=== PATIENT | female | born 1980 | race Caucasian/White ===

== ENCOUNTER → 2023-08-02 11:14 | Outpatient (REF) | payer BC, SELFPAY | LOC: HWWDC 11:14 | PROVIDERS: ATTENDING PHYSICIAN Nurse Practitioner | DX: Z12.31 Encounter for screening mammogram for malignant neoplasm of breast (principal) | CPT/HCPCS: 77063; 77067 ==

== ENCOUNTER 2024-09-11 21:00 | Emergency (ER) | payer BC, SELFPAY ==
[2024-09-11 21:01] VITALS: BP 147/95
[2024-09-11 21:23] VITALS: BMI 41.2
[2024-09-11 21:24] LABS: % Basophils 0.3 % (0-2); % Eosinophils 1.6 % (0-6); % Immature Granulocytes 0.3 % (0-0.5); % Monocytes 7.1 % (1.7-9.3); % Neutrophils 70.7 % (42.2-75.2); Absolute Eosinophils 0.1 10^3/uL (0-0.7); Absolute Lymphocytes 1.5 10^3/uL (1.2-3.4); Absolute Monocytes 0.5 10^3/uL (0.1-0.6); Absolute Neutrophils 5.3 10^3/uL (1.4-6.5); Hemoglobin 14.4 g/dL (12.0-16.0); Mean Corp Hgb Conc. 34.3 g/dL (33.0-37.0); Mean Corpuscular Volume 81.6 fL (81.0-99.0); Mean Platelet Volume 9.5 fL (7.4-10.4); Nucleated Red Blood Cells % 0 %; Platelet Count 328 10^3/uL (130-400); Red Blood Cell Count 5.15 10^6/uL (4.20-5.40); Red Cell Dist. Width 13.5 % (11.5-14.5); White Blood Cell Count 7.5 10^3/uL (4.8-10.8)
[2024-09-11 21:34] VITALS: BMI 41.7
[2024-09-11 21:36] LABS: HCG, Serum Qualitative Screen Negative
[2024-09-11 21:41] LABS: ALT (SGPT) 42 U/L (0-35); AST (SGOT) 27 U/L (14-36); Albumin 4.2 g/dl (3.5-5.0); Alkaline Phosphatase 72 U/L (38-126); Blood Urea Nitrogen 15 mg/dl (7-17); Calcium 9.2 mg/dl (8.4-10.2); Carbon Dioxide 27 mmol/L (22-30); Chloride 99 mmol/L (98-107); Estimated Creatinine Clearance 87 ml/min; Glucose 104 mg/dl (70-99); Lipase 65 U/L (23-300); Potassium 3.9 mmol/L (3.5-5.1); Sodium 136 mmol/L (135-145); Total Bilirubin 0.7 mg/dl (0.2-1.3); Total Protein 6.8 g/dl (6.3-8.2); eGFR > 60.00
[2024-09-11] MEDS: BENADRYL 25 MG IV (22:15)
[2024-09-11] MEDS: COMPAZINE 10 MG IV (22:15)
--- NOTE | 2024-09-11 22:46 | ED.GENMED ---
History of Present Illness
General
Chief Complaint: Abdominal Symptoms
Source: patient
Exam Limitations: none
Time Seen by Provider: 09/11/24 22:05
Nursing documentation reviewed up to this point in time: agreed with
History of Present Illness
History of Present Illness:
Patient started on Wegovy 3 months ago for weight loss, presents to ED secondary to persistent abdominal pain associated with nausea and vomiting over the past 5 days. Denies fever or chills. Denies diarrhea. Patient does have history of
constipation, and has taken Dulcolax and has had bowel movements, which did not improve her symptoms. Abdominal pain described as crampy, diffuse, without any alleviating or exacerbating factors. Patient has not been able to eat anything since
onset of her symptoms. Patient has lost approximately 20 pounds of weight since starting medication. Wegovy dose has been increased incrementally, including last week.
Past History
Past History
ED Past Medical History: Other (Polycystic ovary)
ED Past Surgical History: Cardiac (Ablation for Brown Parkinson White) and
Social History
Tobacco: Non-smoker
Personal:
Living: with family
Review of Systems
Review of Systems
Allergies reviewed?: Yes
All Other Systems: ROS reviewed and negative except as documented in HPI and ROS
Constitutional: Reports no symptoms; Denies fever
Respiratory: Reports no symptoms; Denies cough
Cardiac: Reports no symptoms; Denies chest pain
ABD/GI: Reports abdominal pain, nausea, vomiting and constipated; Denies diarrhea
Musculoskeletal: Reports no symptoms
Skin: Reports no symptoms
Neurological: Reports no symptoms
Phy Exam
Physical Exam
Physical Exam:
Physical Exam
General: mild distress, not acutely ill. afebrile
Head: nc/at. eomi
Neck: supple. normal range of motion.
Heart: s1/s2 regular rate and rhythm
Lungs: no acute respiratory distress. clear bilaterally
Abdomen: normal bowel sounds. not tender. no distention
Neuro: alert and oriented x 3. no focal neurological deficits
Skin: no rash
Psychiatric: well kept. interactive and cooperative
Extremities: no edema. no calf tenderness.
Course
Orders/Labs/Results
Orders:
Orders
09/11/24 21:13
Complete Blood Count/With Diff Urgent
Comprehensive Metabolic Panel Urgent
HCG, Serum Qualitative Screen Urgent
Lipase Urgent
09/11/24 21:51
ECG [Electrocardiogram (*1)] Urgent
Reason for Study: Abdominal Pain
Cardiology Consult: Unknown
09/11/24 21:52
EKG- Treatment ONCE
09/11/24 21:59
Prochlorperazine [Compazine] 10 mg IV NOW STA
09/11/24 22:00
Diphenhydramine [Benadryl] 25 mg IV NOW STA
09/11/24 22:35
0.9% Sodium Chloride 1000 ml [Nss] 1,000 ml IV BOLUS
Ketorolac [Toradol] 15 mg IV NOW STA
Pantoprazole [Protonix IV] 40 mg IV NOW STA
09/11/24 22:49
CR Obstruct Series W/pa Chest Urgent
Comment:
Reason For Exam: abdominal pain
09/11/24 23:17
0.9% Sodium Chloride 500 ml [Nss] 500 ml IV BOLUS
Abnormal Lab Results
09/11/24
21:13
Lymphocytes % 20.0 L %
(20.5-51.1)
Glucose 104 H mg/dl
(70-99)
ALT 42 H U/L
(0-35)
09/11/24 21:13
09/11/24 21:13
Vital Signs
Initial and Last Documented VS:
Initial Vital Signs
Temp Pulse Resp BP Pulse Ox
98.6 F 99 18 147/95 98
09/11/24 21:01 09/11/24 21:01 09/11/24 21:01 09/11/24 21:01 09/11/24 21:01
Last Documented Vital Signs
Temp Pulse Resp BP Pulse Ox
98.4 F 85 20 113/77 98
09/12/24 01:45 09/12/24 01:45 09/12/24 01:45 09/12/24 01:45 09/12/24 01:45
MDM/Problems Addressed
MDM/Problems Addressed:
Patient reports significant improvement in symptoms after treatment. Patient remains afebrile, hemodynamically stable, and without any further vomiting episodes during observation. Patient presenting symptoms likely secondary to recent increased
dose of Wegovy, but difficult to exclude other etiology, i.e. viral infection. At this time, patient feels comfortable going home. Patient will stay hydrated over the weekend and will speak with her provider about potential discontinuation of
Wegovy medication. Patient otherwise is stable and appears comfortable, at time of discharge, to the care of her family.
*Critical Care Note
Total Time (30-74mins, 75-104mins- exclusive of procedures): Not Applicable
ED Attending Note
-
Portions of this chart may have been created with voice recognition software.� Occasional wrong word or��sound alike� substitutions may have occurred due to the inherent limitations of voice recognition software.
Discharge Plan
Departure
Patient Disposition: Home (Routine Discharge)
Date of Disposition: 09/12/24
Time of Disposition: 01:33
Patient with high blood pressure during this ER visit?: Yes
Condition: Good
Discharge Problem:
Nausea and vomiting
Instructions: Nausea and Vomiting, Adult (DC)
Prescriptions:
No Action
ondansetron HCl [Zofran] 4 mg Tablet
4 mg PO Q8H
multivitamin Capsule
1 cap PO DAILY
spironolactone 50 mg Tablet
50 mg PO DAILY
methylphenidate HCl [Concerta] 27 mg Tablet Extended Release 24hr
27 mg PO DAILY
Fish Oil Capsule
1 cap PO DAILY
Wegovy 1 mg/0.5 mL Pen Injector
1 mg SC QWEEK
Prozac
80 mg PO DAILY
calcium
1 tab PO DAILY
iron
1 tab PO DAILY
Rx Instructions:
unsure of daose
Referrals:
Genoveva Thompson CRNP [Family Provider] -
Activity Restrictions/Additional Instructions:
As discussed, please follow-up with your primary care physician for further evaluation and treatment.
Interventions
Interventions:
*Risk Screen - Suicide Last Done: 09/11/24 21:01
*General Assessment Last Done: 09/11/24 21:01
*Neglect/Abuse Screening Last Done: 09/11/24 21:01
*ED- Fall Risk Assessment Last Done: 09/11/24 21:29
*ED COVID-19 Vaccine History Last Done: 09/11/24 21:29
*Nursing Disposition Last Done: 09/12/24 01:40
CY-Bskdiz-Nitnciyfmg Assessment Last Done: 09/11/24 21:29
Discharge Date and Time
Discharge Date/Time: 09/12/24 02:00
Print Language: [id number]
[2024-09-11] MEDS: PROTONIX IV 40 MG IV (23:00)
[2024-09-11] MEDS: NSS 1000 IV (23:00)
[2024-09-11] MEDS: TORADOL 15 MG IV (23:00)
[2024-09-11 23:07] VITALS: BP 115/69
[2024-09-12 00:01] VITALS: BP 127/71
[2024-09-12] MEDS: NSS 500 IV (00:48)
[2024-09-12] MEDS: NSS 1000 IV (00:48)
[2024-09-12 00:49] VITALS: BP 117/74
[2024-09-12 01:45] VITALS: BP 113/77
== END 2024-09-12 02:00 | disposition home or self-care (01) ==
LOC: EMR 21:00
PROVIDERS: Student in an Organized Health Care Education/Training Program; EMERGENCY PHYSICIAN Emergency Medicine; FAMILY PHYSICIAN Nurse Practitioner
DX: R11.2 Nausea with vomiting, unspecified (principal); R03.0 Elevated blood-pressure reading, without diagnosis of hypertension
CPT/HCPCS: 99285; 96374; 96375 ×3; 96361 ×2; 74022; 80053; 83690; 84703; 85025; 93005